=== PATIENT | male | born 1970 | race Caucasian/White ===

== ENCOUNTER 2016-10-03 17:06 | Emergency (ER) | payer BC ==
[2016-10-03 17:18] VITALS: BP 149/75
[2016-10-03] MEDS ORDERED: DIPHTH,PERTUSS(ACELL),TET VAC 0.5 ML VIAL IM ONE ×2 (17:21→18:06)
--- NOTE | 2016-10-03 17:22 | ERNOTE ---
Animal Bite ER Date of Service: 10/03/16 Presenting Symptoms: bitten Time Seen by Provider: 10/03/16 17:20 Source: patient, RN notes reviewed Exam Limitations: no limitations Immunizations: IMMUNIZATION HX Immunizations Up to Date Yes History of Influenza Vaccine Yes Hx Pneumococcal Vaccination Yes Allergies/Adverse Reactions: Allergies No Known Allergies Allergy (Verified 10/03/16 17:18) Home Medications: HOME MEDICATIONS Amox Tr/Potassium Clavulanate [Augmentin 875-125 Tablet] 875 mg PO Q12H #6 tab 10/03/16 [Last Taken Unknown] Simvastatin [Zocor] 20 mg PO DAILY 10/03/16 [Last Taken Unknown] Narrative: 46 y/o male ambulatory to the ED for a dog bite. He was walking down the sidewalk near his home when a neighbor approached with his dog on a leash. The patient walked out into the grass to avoid the dog, but the dog came after him anyway, biting him on the left leg just above the knee. The neighbor showed him several receipts regarding the dog's vaccinations, but he reports he was unable to determine if the dog had been vaccinated for rabies with the information. He is believes his last tetanus vaccine was over 10 years ago. The police have not been notified. Onset Time: SKULL SPLITTER Location of Incident: Reports: street Animal Type: Reports: dog, neighborhood animal Animal Appearance: healthy Animal's Immunization Status: Reports: unknown Observation/Capture: Reports: animal known Context of Attack: Reports: approached animal Severity of injury: Reports: bitten Location of Injury: Reports: lower extremity (L) Associated symptoms: Denies: numbness distally, pain on movement, tingling Prior Treatment: Denies: recently seen, currently on antibiotics Review of Systems - Review of Systems Constitutional: Absent: recent illness, fever, malaise EYE: Present: no symptoms reported ENT: Present: no symptoms reported Respiratory: Present: no symptoms reported Cardiology: Absent: chest pain, syncope, edema Gastrointestinal/Abdominal: Absent: nausea, vomiting Genitourinary: Present: no symptoms reported Musculoskeletal: Absent: joint pain, joint swelling Skin: Absent: rash, lesions Neurological: Absent: weakness, numbness, tingling Endocrine: Present: no symptoms reported Hematologic/Lymphatic: Absent: easy bruising, easy bleeding Psych: Present: no symptoms reported - Patient's Past Medical History Patient History - Medical: No pertinent hx Patient History - Cardiac/Respiratory: Hyperlipidemia Patient History - Cancer: No Hx of Cancer Patient History - Surgical Procedures: No surgical history Patient History - Other: None - Social History Living Situations: home Psych History: No pertinent hx Smoking Status: Never smoker Alcohol Use: none Drug Use: none - Immunizations Immunizations Up to Date: No Hx Pneumococcal Vaccination: Yes History of Influenza Vaccine: Yes Physical Exam - Physical Exam General Appearance: Present: wd/wn, alert, no apparent distress Respiratory: Present: no respiratory distress, normal breath sounds, no accessory muscle use, lungs clear Cardiovascular/Chest: Present: regular rate, rhythm, no murmur Extremity Exam: Present: normal range of motion, no edema, other - tenderness surrounding bite wound on left distal lateral thigh. Absent: joint redness, joint swelling Neurological Exam: Present: alert, oriented, normal mood/affect, no motor/ sensory deficits Skin Exam: Present: normal color, warm/dry, other - contusion to left lateral distal thigh with 2 small puncture wounds ED Progress - Vital Signs Patient's Vital Signs:: I have reviewed the patient's vital signs. Vital Signs: Vital Signs 10/03/16 17:09 Temperature 36.6 C Pulse Rate 79 Respiratory 16 Rate Blood Pressure 149/75 O2 Sat by Pulse 97 Oximetry - Progress/Reassessment Chief Complaint: Animal Bite Progress:: Improved Plan - Plan Plan: [employer] contacted by nursing staff, officer here and took report from patient. Police are finding out vaccination status of the animal and will follow up with the patient regarding this. Wound cleansed and dressed with Bacitracin and bandage. Tetanus updated and prophylactic antibiotic initiated. Departure Clinical Impression: Dog bite of extremity - Departure Disposition: Home self-care Condition: Good Instructions: Animal Bite Additional Instructions: Keep wound clean, apply antibiotic ointment and bandage as needed. [employer] will contact you regarding the rabies vaccination status of the dog Return for fever, increasing redness, drainage, or other concerns. Referrals: Edith Elise FNP [Primary Care Provider] - Prescriptions: Amox Tr/Potassium Clavulanate [Augmentin 875-125 Tablet] 875 mg PO Q12H #6 tab
[2016-10-03] MEDS ORDERED: AMOX TR/POTASSIUM CLAVULANATE 875 MG TABLET PO ONE (17:54)
[2016-10-03] MEDS ORDERED: AMOX TR/POTASSIUM CLAVULANATE 875 MG TABLET ONE (18:06)
== END 2016-10-03 18:13 | disposition home or self-care (01) ==
LOC: ER 17:06
DX: S70.372A Other superficial bite of left thigh, initial encounter (principal); W54.0XXA Bitten by dog, initial encounter; Y93.01 Activity, walking, marching and hiking; Y92.480 Sidewalk as the place of occurrence of the external cause; Z23 Encounter for immunization